=== PATIENT | female | born 1995 | race Caucasian/White ===

== ENCOUNTER 2017-11-28 17:35 | Emergency (ER) | payer OTHER ==
[2016-08-14 15:45] VITALS: Ht 167.6 cm; Wt 61.2 kg
[~2017-11-28] VITALS: Ht 167.6 cm; Wt 61.2 kg
[~2017-11-28 17:35] MED LIST: ACET500T68 PO; AMOX1TAB9 PO; CYCL10TA29 PO; DEXT10TA9 PO; DOCU-416 PO; ESOM20CA31 PO; IBUP200C71 PO; IBUP800T37 PO; LOR5/325 PO; MULT1TAB64 PO; NORG-1 PO; NORG1TAB97 PO; OMEG500C7 PO; ONDA4TAB PO; OXYC-865 PO; PROM-110 PO; PROM25SU8 PR; SERT25TA87 PO; SUMA100T32 PO; SUMA6CAR SQ; TRAM-420 PO
[2017-11-28 17:40] VITALS: BP 110/87
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
== END 2017-11-28 20:34 | disposition home or self-care (01) ==
LOC: ER 17:55
DX: S16.1XXA Strain of muscle, fascia and tendon at neck level, initial encounter (principal); V49.69XA Unspecified car occupant injured in collision with other motor vehicles in traffic accident, initial encounter
CPT/HCPCS: 70450; 72125; 81025; 99283